=== PATIENT | female | born 1970 | race Caucasian/White ===

== ENCOUNTER 2023-07-19 20:38 | Emergency (ER) | payer SELFPAY ==
[2023-07-19 20:55] LABS: APPEARANCE,URINE CLOUDY (CLEAR); BILIRUBIN,URINE NEGATIVE (NEGATIVE); COLOR,URINE YELLOW (YELLOW); GLUCOSE,URINE NEGATIVE (NEGATIVE); KETONES,URINE NEGATIVE (NEGATIVE); LEUKOCYTE ESTERASE,URINE LARGE (NEGATIVE); NITRITE,URINE NEGATIVE (NEGATIVE); OCCULT BLOOD,URINE MODERATE (NEGATIVE); PH,URINE 7.5 (5.0-9.0); PROTEIN,URINE 100 (NEGATIVE); UROBILINOGEN,URINE 0.2 mg/dL (0.2-1.0)
[2023-07-19 21:12] LABS: AMPHETAMINES,URINE NEGATIVE (NEGATIVE); BARBITURATES,URINE NEGATIVE (NEGATIVE); BENZODIAZEPINE,URINE NEGATIVE (NEGATIVE); MDMA (ECSTASY), URINE NEGATIVE (NEGATIVE); METHADONE,URINE NEGATIVE (NEGATIVE); METHAMPHETAMINES,URINE NEGATIVE (NEGATIVE); OPIATES,URINE NEGATIVE (NEGATIVE); OXYCODONE,URINE NEGATIVE (NEGATIVE); PHENCYCLIDINE,URINE NEGATIVE (NEGATIVE); TCA,URINE NEGATIVE (NEGATIVE)
[2023-07-19 21:16] LABS: RBC,URINE 30-40 /HPF (0-5)
[2023-07-19 21:18] LABS: BACTERIA,URINE FEW /HPF (0-FEW/HPF); EPITHELIAL CELLS,URINE FEW /HPF (NOT SEEN); WBC,URINE 50-75 /HPF (0-5/HPF)
[2023-07-19 21:24] LABS: HEMATOCRIT 30.1 % (37.0-47.0); HEMOGLOBIN 8.4 g/dL (12.0-16.0); MEAN CORPUSCULAR HEMOGLOBIN 20.3 pg (27.0-34.0); MEAN CORPUSCULAR HGB CONC 27.9 g/dL (33.0-35.0); MEAN CORPUSCULAR VOLUME 72.7 fL (80-100); PLATELET COUNT,PLT 217 10^3/uL (150-450); RED BLOOD CELL COUNT 4.14 10^6/uL (4.2-5.4); WHITE BLOOD CELL COUNT,WBC 6.7 10^3/uL (5.0-10.0)
[2023-07-19 21:27] LABS: BASOPHILS PERCENT AUTO 0.6 % (0.0-1.0); EOSINOPHILS PERCENT AUTO 4.5 % (1.0-3.0); MONOCYTES PERCENT AUTO 9.5 % (2-8); NEUTROPHILS PERCENT AUTO 59.4 % (42.2-75.2)
[2023-07-19 21:34] LABS: ALBUMIN 3.1 g/dL (3.4-5.0); ANION GAP 11.3 mEq/L (7-13); BILIRUBIN TOTAL 0.3 mg/dL (0.2-1.0); BUN/CREATININE RATIO 15.3 (No establ ref range); CALCIUM 8.9 mg/dL (8.5-10.1); CREATININE 1.44 mg/dL (0.55-1.02); EST CRCL DRUG DOSING (CG) 39.01 mL/min; PHOSPHORUS 4.2 mg/dL (2.6-4.7); POTASSIUM,K 4.3 mmol/L (3.5-5.1)
[2023-07-19 21:35] LABS: A/G RATIO 0.63
[2023-07-19 21:46] LABS: SEG NEUTROPHILS PERCENT MAN 66 % (42-75)
[2023-07-19 21:47] LABS: BAND PERCENT MAN 3 %; EOSINOPHILS PERCENT MAN 4 % (1-3); LYMPHOCYTES PERCENT MAN 23 % (20-50); MONOCYTES PERCENT MAN 4 % (2-8)
[2023-07-19 21:50] LABS: LACTIC ACID 0.8 mmol/L (0.4-2.0)
[2023-07-19] MEDS: Ketorolac 30 MG/ML SDV IVPUSH ONE (22:17)
[2023-07-19] MEDS: Sodium Chloride 0.9% 10 ML Syringe FLUSH PRN (22:19)
[2023-07-19] MEDS: cefTRIAXone 1 GM Vial IVPUSH ONE (22:20)
== END 2023-07-19 22:45 | disposition home or self-care (01) ==
LOC: DL.ED 20:38
DX: N39.0 Urinary tract infection, site not specified (principal); N28.1 Cyst of kidney, acquired; N13.4 Hydroureter; N20.0 Calculus of kidney
CPT/HCPCS: 36415; 74176; 80053; 80305; 81001; 81025; 83605; 84100; 85025; 87086; 87088; 87186; 96374; 96375; 99284; J0696; J1885; J3490

== ENCOUNTER 2024-07-13 21:13 | Emergency (ER) | payer MEDICAID ==
[2024-07-13] MEDS ORDERED: Sodium Chloride 0.9% 10 ML Syringe FLUSH PRN (21:27)
[2024-07-13 21:37] LABS: HEMATOCRIT 31.3 % (37.0-47.0); HEMOGLOBIN 8.1 g/dL (12.0-16.0); MEAN CORPUSCULAR HEMOGLOBIN 21.5 pg (27.0-34.0); MEAN CORPUSCULAR HGB CONC 25.9 g/dL (33.0-35.0); PLATELET COUNT,PLT 158 10^3/uL (150-450); RED BLOOD CELL COUNT 3.77 10^6/uL (4.2-5.4); WHITE BLOOD CELL COUNT,WBC 7.5 10^3/uL (5.0-10.0)
[2024-07-13 21:55] LABS: EOSINOPHILS PERCENT AUTO 2.9 % (1.0-3.0); LYMPHOCYTES PERCENT AUTO 15.1 % (20.5-50.1); MONOCYTES PERCENT AUTO 7.3 % (2-8); NEUTROPHILS PERCENT AUTO 74.4 % (42.2-75.2)
[2024-07-13 21:56] LABS: BASOPHILS PERCENT AUTO 0.3 % (0.0-1.0)
[2024-07-13 22:05] LABS: O2 DELIVERY DEVICE NASAL CANNULA
[2024-07-13 22:06] LABS: ALBUMIN 2.6 g/dL (3.4-5.0); ANION GAP 12.7 mEq/L (7-13); BILIRUBIN TOTAL 0.5 mg/dL (0.2-1.0); BUN/CREATININE RATIO 9.2 (No establ ref range); C-REACTIVE PROTEIN 6.03 ng/dL (<=0.50); CALCIUM 8.5 mg/dL (8.5-10.1); CREATININE 1.42 mg/dL (0.55-1.02); EST CRCL DRUG DOSING (CG) 39.11 mL/min; MAGNESIUM 1.9 mg/dL (1.8-2.4); POTASSIUM,K 3.7 mmol/L (3.5-5.1); PROTEIN TOTAL,TP 7.3 g/dL (6.4-8.2)
[2024-07-13 22:08] LABS: A/G RATIO 0.55
[2024-07-13 22:10] LABS: BASE EXCESS VENOUS 7.2 mmol/l ((-2)-(+3)); BICARBONATE,VENOUS 32 mmol/l (19-25); O2 SATURATION VENOUS 78.2 % (60-80); PCO2 VENOUS 52 mmHg (41-51); PH,VENOUS 7.41 (7.31-7.41); PO2 VENOUS 53 mmHg (35-42)
[2024-07-13 22:13] LABS: CREATINE KINASE,CK 61 U/L (16-191)
[2024-07-13 22:15] LABS: LACTIC ACID 2.9 mmol/L (0.4-2.0)
[2024-07-13 22:29] LABS: PROTHROMBIN TIME 10.6 SEC (9.0-12.0); PTT,PARTIAL THROMBOPLSTIN TIME 23.1 SEC (22.0-34.0)
[2024-07-13 22:55] LABS: EOSINOPHILS PERCENT MAN 1 % (1-3); LYMPHOCYTES PERCENT MAN 10 % (20-50); MONOCYTES PERCENT MAN 5 % (2-8); POIKILOCYTOSIS 2+ MODERATE; SEG NEUTROPHILS PERCENT MAN 84 % (42-75)
[2024-07-13 22:56] LABS: STOMATOCYTES 2+ MODERATE
== END 2024-07-14 00:49 ==
LOC: DL.ED 21:13
DX: J96.22 Acute and chronic respiratory failure with hypercapnia (principal); J96.21 Acute and chronic respiratory failure with hypoxia; I50.9 Heart failure, unspecified; E66.9 Obesity, unspecified; M19.90 Unspecified osteoarthritis, unspecified site; Z68.45 Body mass index [BMI] 70 or greater, adult; Z86.16 Personal history of COVID-19; Z90.49 Acquired absence of other specified parts of digestive tract
CPT/HCPCS: 36415; 71045; 80053; 82550; 82803; 83605; 83735; 83880; 84443; 84484; 85025; 85379; 85610; 85730; 86140; 87040; 93005; 93010; 99285